=== PATIENT | female | born 1980 | race Two or more races ===

== ENCOUNTER 2019-05-14 16:20 | Inpatient (IN) | payer OTHER ==
[~2019-05-14] VITALS: Ht 157.5 cm; Wt 3.2 kg
[2019-05-16] MEDS ORDERED: OBSTETRIX DHA1 EACH PO (08:24)
[2019-05-17] MEDS ORDERED: DOCUSATE SODIU100 MG PO (06:15)
[2019-05-17] MEDS ORDERED: OXYC1TAB9 PO (06:15)
[2019-05-17] MEDS ORDERED: IBUPROFEN800 MG PO (06:15)
[2019-05-17] MEDS ORDERED: SIMETHICONE125 M1 PO (06:15)
== END 2019-05-17 14:56 | disposition home or self-care (01) | DRG 785 ==
LOC: LDR 16:20 → OB/GYN 16:20
PROVIDERS: ADMIT Obstetrics & Gynecology
PROC: 0UL70ZZ Occlusion of Bilateral Fallopian Tubes, Open Approach (ICD-10-PCS; 2019-05-14)
PROC: 4A1HXCZ Monitoring of Products of Conception, Cardiac Rate, External Approach (ICD-10-PCS; 2019-05-14)
PROC: 10D00Z1 Extraction of Products of Conception, Low, Open Approach (ICD-10-PCS; principal; 2019-05-14 18:00)
DX: O82 Encounter for cesarean delivery without indication (principal); Z3A.39 39 weeks gestation of pregnancy; Z37.0 Single live birth; Z30.2 Encounter for sterilization

== ENCOUNTER 2022-11-17 06:32 | Day surgery (SDC) | payer OTHER ==
[~2022-11-17] VITALS: Ht 157.5 cm; Wt 59.9 kg
[~2022-11-17 06:32] MED LIST: DOCUSATE SODIU100 MG PO; IBUPROFEN800 MG PO; OBSTETRIX DHA1 EACH PO; OXYC1TAB9 PO; SIMETHICONE125 M1 PO
== END 2022-11-17 14:35 | disposition home or self-care (01) ==
LOC: CIR.AMB 06:32
PROVIDERS: ATTEND Obstetrics & Gynecology Gynecologic Oncology
DX: N70.11 Chronic salpingitis (principal); N83.291 Other ovarian cyst, right side; Z20.822 Contact with and (suspected) exposure to COVID-19